=== PATIENT | female | born 1975 | race Caucasian/White ===

== ENCOUNTER 2017-04-26 21:56 | Emergency (ER) | payer OTHER ==
[~2017-04-26] VITALS: Ht 167.6 cm; Wt 74.8 kg
[2017-04-26 22:33] LABS: BILIRUBIN,URINE NEGATIVE (NEG); GLUCOSE,URINE NEGATIVE (NEG); NITRITE,URINE NEGATIVE (NEG); PH,URINE 5.5; PROTEIN,URINE NEGATIVE (NEG-TRACE); UROBILINOGEN,URINE 0.2 mg/dL (0.2 mg/dL)
[2017-04-26 22:40] LABS: BACTERIA,URINE MODERATE /HPF (0-FEW); RBC,URINE 0 /HPF (0-2); SQUAMOUS EPITHELIAL CELL,UR MOD /LPF; WBC,URINE OCC /HPF (0-4)
[2017-04-26 22:44] LABS: BASO # 0.1 x10^3/uL (0.0-0.2); BASO % 1 % (0-3); EOS % 4 % (0-3); HEMATOCRIT 34.5 % (36.0-47.0); LYMPH # 2.1 x10^3/uL (1.0-4.8); LYMPH % 25 % (24-48); MEAN CORPUSCULAR HEMOGLOBIN 30 pg (25-35); MEAN CORPUSCULAR HGB CONC 35 g/dL (31-37); MEAN CORPUSCULAR VOLUME 86 fL (79-100); MONO % 7 % (0-9); NEUT % 64 % (31-73); PLATELET COUNT 181 x10^3/uL (140-400); RED CELL DISTRIBUTION WIDTH 15.7 % (11.5-14.5); WHITE BLOOD COUNT 8.6 x10^3/uL (4.0-11.0)
[2017-04-26 22:53] LABS: INR 1.1 (0.8-1.1); PROTHROMBIN TIME PATIENT 13.6 SEC (11.7-14.0)
[2017-04-26 22:56] LABS: CALCIUM 8.9 mg/dL (8.5-10.1); CREATININE 0.8 mg/dL (0.6-1.0); GFR 79.4; POTASSIUM 3.7 mmol/L (3.5-5.1)
[2017-04-26] MEDS ORDERED: MORPHINE SULFATE 10 MG/ML VIAL. IV ONE (23:00)
[2017-04-26] MEDS ORDERED: IV NORMAL SALINE 1000ML BAG 1,000 ML IV ONE (23:00)
[2017-04-26] MEDS ORDERED: ONDANSETRON PF 4 MG/2 ML VIAL. IV ONE (23:00)
[2017-04-26 23:02] LABS: ALBUMIN 3.6 g/dL (3.4-5.0); ALBUMIN/GLOBULIN RATIO 0.9 (1.0-1.7); TOTAL BILIRUBIN 0.3 mg/dL (0.2-1.0); TOTAL PROTEIN 7.4 g/dL (6.4-8.2)
--- NOTE | 2017-04-26 23:37 | PHYS DOC ---
Adult General Chief Complaint Chief Complaint: ABDOMINAL PAIN HPI HPI Patient is a 41 year old female presenting to the emergency department for evaluation of right upper quadrant pain that has been going on for the past 2 days and she says it is persistent and not made worse or better by food eating or anything that she can think of. Is that she is having no nausea vomiting diarrhea constipation dysuria hematuria vaginal bleeding vaginal discharge. He has had 3 prior C-sections but no other abdominal surgeries. She is in no obvious distress with normal vital signs. Review of Systems Review of Systems Constitutional: Denies fever or chills [] Cardiovascular: No additional information not addressed in HPI [] GI: + abdominal pain. No nausea, vomiting, bloody stools or diarrhea [] : Denies dysuria or hematuria [] Musculoskeletal: Denies back pain or joint pain [] Current Medications Current Medications Current Medications Medications (Trade) Dose Ordered Sig/Janette Start Time Stop Time Status Last Admin Dose Admin Morphine Sulfate 5 mg 1X ONCE 04/26/17 23:00 04/26/17 23:11 DC 04/26/17 23:25 5 MG Ondansetron HCl (Zofran) 4 mg 1X ONCE 04/26/17 23:00 04/26/17 23:11 DC 04/26/17 23:25 4 MG Sodium Chloride 1,000 ml @ 1,000 mls/hr 1X ONCE 04/26/17 23:00 04/26/17 23:59 04/26/17 23:25 1,000 MLS/HR Allergies Allergies Allergies Coded Allergies Type Severity Reaction Last Updated Verified No Known Drug Allergies 04/26/17 No Physical Exam Physical Exam Constitutional: Well developed, well nourished, no acute distress, non-toxic appearance. [] Cardiovascular:Heart rate regular rhythm, no murmur [] Lungs & Thorax: Bilateral breath sounds clear to auscultation [] Abdomen: Bowel sounds normal, soft, positive right upper quadrant tenderness, no rebound or guarding, no masses, no pulsatile masses. [] Current Patient Data Vital Signs Vital Signs Date Time Temp Pulse Resp B/P (MAP) Pulse Ox O2 Delivery O2 Flow Rate FiO2 04/26/17 23:25 18 Room Air Lab Values Laboratory Tests Test 04/26/17 21:32 04/26/17 22:10 04/26/17 22:40 POC Urine HCG, Qualitative Hcg negative (Negative) Urine Collection Type Unknown Urine Color Yellow Urine Clarity Clear Urine pH 5.5 Urine Specific [place] 1.015 Urine Protein Negative mg/dL (NEG-TRACE) Urine Glucose (UA) Negative mg/dL (NEG) Urine Ketones (Stick) Negative mg/dL (NEG) Urine Blood Negative (NEG) Urine Nitrite Negative (NEG) Urine Bilirubin Negative (NEG) Urine Urobilinogen Dipstick 0.2 mg/dL (0.2 mg/dL) Urine Leukocyte Esterase Negative (NEG) Urine RBC 0 /HPF (0-2) Urine WBC Occ /HPF (0-4) Urine Squamous Epithelial Cells Mod /LPF Urine Bacteria Moderate /HPF (0-FEW) Urine Mucus Marked /LPF White Blood Count 8.6 x10^3/uL (4.0-11.0) Red Blood Count 4.00 x10^6/uL (3.50-5.40) Hemoglobin 12.0 g/dL (12.0-15.5) Hematocrit 34.5 % (36.0-47.0) L Mean Corpuscular Volume 86 fL (79-100) Mean Corpuscular Hemoglobin 30 pg (25-35) Mean Corpuscular Hemoglobin Concent 35 g/dL (31-37) Red Cell Distribution Width 15.7 % (11.5-14.5) H Platelet Count 181 x10^3/uL (140-400) Neutrophils (%) (Auto) 64 % (31-73) Lymphocytes (%) (Auto) 25 % (24-48) Monocytes (%) (Auto) 7 % (0-9) Eosinophils (%) (Auto) 4 % (0-3) H Basophils (%) (Auto) 1 % (0-3) Neutrophils # (Auto) 5.5 x10^3uL (1.8-7.7) Lymphocytes # (Auto) 2.1 x10^3/uL (1.0-4.8) Monocytes # (Auto) 0.6 x10^3/uL (0.0-1.1) Eosinophils # (Auto) 0.3 x10^3/uL (0.0-0.7) Basophils # (Auto) 0.1 x10^3/uL (0.0-0.2) Prothrombin Time 13.6 SEC (11.7-14.0) Prothrombin Time INR 1.1 (0.8-1.1) PTT 32 SEC (24-38) Sodium Level 139 mmol/L (136-145) Potassium Level 3.7 mmol/L (3.5-5.1) Chloride Level 102 mmol/L (98-107) Carbon Dioxide Level 26 mmol/L (21-32) Anion Gap 11 (6-14) Blood Urea Nitrogen 10 mg/dL (7-20) Creatinine 0.8 mg/dL (0.6-1.0) Estimated GFR (Cockcroft-Gault) 79.4 BUN/Creatinine Ratio 13 (6-20) Glucose Level 107 mg/dL (70-99) H Calcium Level 8.9 mg/dL (8.5-10.1) Total Bilirubin 0.3 mg/dL (0.2-1.0) Aspartate Amino Transferase (AST) 18 U/L (15-37) Alanine Aminotransferase (ALT) 20 U/L (14-59) Alkaline Phosphatase 56 U/L (46-116) Total Protein 7.4 g/dL (6.4-8.2) Albumin 3.6 g/dL (3.4-5.0) Albumin/Globulin Ratio 0.9 (1.0-1.7) L Lipase 99 U/L (73-393) Laboratory Tests 04/26/17 22:40 Laboratory Tests 04/26/17 22:40 EKG EKG [] Radiology/Procedures Radiology/Procedures INDICATION: PT C.O RUQ PAIN AND DIARRHEA COMPARISON: None. TECHNIQUE: Grayscale and color ultrasound images obtained through the abdomen. FINDINGS: Aorta/IVC: Incomplete visualization Pancreas: Incompletely seen Liver: Borderline echogenic Gallbladder: Contracted without definite stones Common Bile Duct: Not dilated. Right Kidney: No hydronephrosis. IMPRESSION: Gallbladder is largely contracted without bile duct dilation or definite stones. Liver is borderline echogenic. Nonspecific but can be seen with mild fatty infiltration. Electronically signed by: Ella Harden MD (04/26/2017 11:32 PM) [facility] DICTATED and SIGNED BY: ELLA HARDEN MD DATE: 04/26/17 0543 Course & Med Decision Making Course & Med Decision Making Patient with right upper quadrant pain on history and physical exam. Her gallbladder study is negative and her labs are normal as well. She likely needs further workup with HIDA scan and possibly GI consultation to rule out ulcerative disease. We'll prescribed Prilosec and [place] Zofran have her follow with her primary care provider later this week and have her come back to the emergency department with any worsening pain fevers vomiting or other general concerns. Patient aware and agreeable with plan and verbalized understanding of the above instructions. Dragon Disclaimer Dragon Disclaimer This electronic medical record was generated, in whole or in part, using a voice recognition dictation system. Departure Departure Impression: Primary Impression: Abdominal pain Disposition: HOME, SELF-CARE Condition: GOOD Referrals: ELÍAS OLEARY DO (PCP) Patient Instructions: Abdominal Pain (Nonspecific) Additional Instructions: Eat soft nonirritating nonfatty foods. Drink plenty of fluids including water and Gatorade. He may end up needing a HIDA scan ordered GI consultation. Scripts Omeprazole Magnesium (PRILOSEC OTC) 20 Mg Tablet.dr 20 MG PO DAILY, #30 TAB Prov: BEATRIZ NIEVES DO 04/26/17 Ondansetron (ZOFRAN ODT) 4 Mg Tab.rapdis 4 MG PO BID Y for NAUSEA/VOMITING, #10 TAB Prov: BEATRIZ NIEVES DO 04/26/17 Hydrocodone/Apap 5-325 (NORCO 5-325 TABLET) 1 Each Tablet 1 TAB PO PRN Q6HRS Y for PAIN, #20 TAB 0 Refills Prov: BEATRIZ NIEVES DO 04/26/17 Problem Qualifiers Primary Impression: Abdominal pain Abdominal location: right upper quadrant Qualified Codes: R10.11 - Right upper quadrant pain BEATRIZ NIEVES DO Apr 26, 2017 23:37
[2017-04-26] MEDS ORDERED: OMEP20TA63 PO (23:57)
[2017-04-26] MEDS ORDERED: HYDR-971 PO (23:57)
[2017-04-26] MEDS ORDERED: ONDA4TAB10 PO (23:57)
[2017-04-27] VITALS: BP 105/72
--- NOTE | 2017-04-27 06:22 | EKG ---
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
== END 2017-04-27 00:40 | disposition home or self-care (01) ==
LOC: ER 21:56
DX: R10.11 Right upper quadrant pain (principal)
CPT/HCPCS: 36415; 76705; 80053; 81001; 81025; 83690; 85027; 85610; 85730; 87086; 93005; 96361; 96374; 96375; 99285; C1887; J2270; J2405; J7030

== ENCOUNTER → 2017-05-02 | Outpatient (CLI) | payer OTHER ==
[2017-04-27] VITALS: BP 105/72
[~2017-05-02] VITALS: Ht 167.6 cm; Wt 75.3 kg
[~2017-05-02] MED LIST: HYDR-971 PO; OMEP20TA63 PO; ONDA4TAB10 PO; SINCALIDE 1.51 MCG in IV NORMAL SALINE 50ML 30 ML IV ONE
--- NOTE | 2017-05-02 11:19 | RAD ---
Indication abdominal pain. Hepatobiliary scan was performed. 5.5 mCi of technetium labeled Choletec was administered. 1.5 mcg of CCK was diluted in saline and administered over several minutes. Following the CCK administration a gallbladder ejection fraction calculation was made. There is normal uptake of the radiopharmaceutical in the liver. Normal activity is seen in the biliary system and gallbladder. Following the Kinevac administration the estimated gallbladder ejection fraction is 57% which is normal. IMPRESSION: Normal study
== END | disposition home or self-care (01) ==
LOC: NM 08:29
PROVIDERS: ATTEND Family Medicine
DX: R10.11 Right upper quadrant pain (principal)
CPT/HCPCS: 78226; 96374; 96375; A9537; J2805